=== PATIENT | female | born 1970 | race Caucasian/White ===

== ENCOUNTER 2016-06-12 02:39 | Emergency (ER) | payer MEDICAID ==
[~2016-06-12] VITALS: Ht 147.3 cm; Wt 47.6 kg
[~2016-06-12 02:39] MED LIST: AZITHROMYCIN250 MG ORAL; BREO ELLIPTA 11 EACH IH; CLARINEX5 MG ORAL; DIFLUCAN100 MG ORAL; IBUPROFEN600 MG PO; NITROFURANTOIN100 M2 ORAL; NKM; PHENAZOPYRIDIN200 MG ORAL; PROMETHAZINE-C118 M1 ORAL; PROVENTIL HFA6.7 G1 IH; VICODIN 5-5001 EACH PO
[2016-06-12 03:10] VITALS: BP 127/71
[2016-06-12] MEDS ORDERED: Lidocaine 2% Visc 15ml soln ONE (03:23)
[2016-06-12] MEDS ORDERED: Lidocaine 2% Visc 15ml soln ORAL ONE (03:30)
[2016-06-12] MEDS ORDERED: LORazepam 1mg tab ORAL ONE (04:15)
[2016-06-12] MEDS ORDERED: CORTISPORIN EAR10 ML LEFT EAR (05:02)
--- NOTE | 2016-06-12 05:03 | Emergency Room Report ---
History of Present Illness General Chief Complaint: Foreign Body Source: Patient Present Illness HPI Is a 45-year-old female who presents with foreign body left ear. She woke up with an insect crawled into her ear. She been try to flush it out without success. Denies any fever or chills. Pain is 10 out of 10. No nausea no vomiting. No bleeding. No loss of hearing. Allergies: Coded Allergies: No Known Allergies (Unverified , 01/17/13) Patient History Past Medical History: see triage record, old chart reviewed Past Surgical History: none Pertinent Family History: none Social History: Denies: smoking Last Menstrual Period: 05/21/2016 Now: No Immunizations: other Reviewed Nursing Documentation: PMH: Agreed, PSxH: Agreed Nursing Documentation-PMH Past Medical History: No History, Except For Hx Asthma: Yes Review of Systems Eye: Denies: blurred vision, eye pain ENT: Denies: ear pain, nose congestion, throat swelling Respiratory: Denies: cough, shortness of breath Cardiovascular: Denies: chest pain, palpitations Gastrointestinal: Denies: abdominal pain, diarrhea, nausea, vomiting Musculoskeletal: Denies: back pain, joint pain Skin: Denies: rash Neurological: Denies: headache, numbness Endocrine: Denies: increased thirst, increased urine Hematologic/Lymphatic: Denies: easy bruising All Other Systems: negative except mentioned in HPI Physical Exam Vital Signs Date Time Temp Pulse Resp B/P Pulse Ox O2 Delivery O2 Flow Rate FiO2 06/12/16 02:57 98.2 87 16 128/72 100 Room Air vitals normal Sp02 EP Interpretation: reviewed, normal General Appearance: well appearing, no apparent distress, alert Head: normocephalic, atraumatic Eyes: bilateral eye EOMI, bilateral eye PERRL ENT: hearing grossly normal, normal pharynx, other - Left ear: there is a alcantara in her canal. no trauma. Neck: full range of motion, supple, no meningismus Respiratory: chest non-tender, lungs clear, normal breath sounds Cardiovascular #1: regular rate, rhythm, no murmur Gastrointestinal: normal bowel sounds, non tender, no mass, no organomegaly, no bruit, non-distended Musculoskeletal: back normal, gait/station normal, normal range of motion Psychiatric: mood/affect normal Skin: warm/dry Procedures Additional Procedure Procedure Narrative Procedure: Foreign body removal. Indication: Foreign body in ear canal. Description: I tried irrigating the canal multiple times. This was unsuccessful. Using an alligator forcep, was able to pull out the thorax of the alcantara. The headache, wings, and legs are still in there. Will discharge home with ENT followup. There is some irritation of the canal but no perforation. Patient tolerated procedure without a Problem. Medical Decision Making Diagnostic Impression: Primary Impression: Foreign body in left ear Qualified Codes: T16.2XXA - Foreign body in left ear, initial encounter ER Course Patient with a bug in her ear. Was able removed half of it. The other part was too deep inside. She would need ENT followup. Told to come back in a couple days. Hopefully it will soften to the point that it will break up with irrigation. Last Vital Signs Date Time Temp Pulse Resp B/P Pulse Ox O2 Delivery O2 Flow Rate FiO2 06/12/16 03:10 98.6 79 16 127/71 100 Room Air Status: improved Disposition: HOME, SELF-CARE Condition: Stable Scripts Neomycin/Polymyxin B Sulf/Hc* (CORTISPORIN EAR SOLUTION*) 10 Ml Solution 4 DROP LEFT EAR QID, #10 ML 0 Refills Prov: ELOINA HANNAH M.D. 06/12/16 Referrals: NOT CHOSEN IPA/,REFERRING (PCP) Patient Instructions: FOREIGN BODY, Ear Canal (Removed) Additional Instructions: Followup your DrBeckie in one to 2 days for referral to see ENT Dr. Return in 2-3 days for recheck. Return if worse. ELOINA HANNAH M.D. Jun 12, 2016 05:03
[2016-06-12 05:07] VITALS: BP 118/69
== END 2016-06-12 05:07 | disposition home or self-care (01) ==
LOC: EMR 02:59
DX: T16.2XXA Foreign body in left ear, initial encounter (principal); X58.XXXA Exposure to other specified factors, initial encounter; Y92.9 Unspecified place or not applicable; J45.909 Unspecified asthma, uncomplicated
CPT/HCPCS: 69200; 99284; Z7502

== ENCOUNTER 2017-12-12 18:33 | Emergency (ER) | payer MEDICAID ==
[~2017-12-12] VITALS: Ht 147.3 cm; Wt 53.1 kg
[~2017-12-12 18:33] MED LIST changes: +CORTISPORIN EAR10 ML LEFT EAR
[2017-12-12 18:47] VITALS: BP 130/82
--- NOTE | 2017-12-12 18:54 | Emergency Room Report ---
History of Present Illness General Chief Complaint: Animal Bite Source: Patient (Willow Major DO) Present Illness HPI 47-year-old female presents to the emergency department complaining of itchy lesions to the bilateral lower extremities 3 days. denies erythema Pt. denies fevers, chills or swollen tender lymph nodes. Denies lesions/rashes elsewhere on the body. Denies new medications or body washes or creams. Denies swelling of the lips, tongue , throat or airway. Denies wheezing, or shortness of breath. Denies recent travel, recent illness or ill contacts. denies blisters , oral lesions, or sloughing of the skin. pt. is requesting refill of her albuterol inhaler as she is out, denies asthma exacerbation at this time. (Francheska Cortes) Allergies: Coded Allergies: No Known Allergies (Unverified , 01/17/13) Patient History Past Medical History: see triage record, asthma Social History: Denies: smoking, alcohol use, drug use Last Menstrual Period: 12/12/17 Now: No Reviewed Nursing Documentation: PMH: Agreed; PSxH: Agreed (PedritoWillow Beckie ) Past Medical History: see triage record Past Surgical History: none Pertinent Family History: none Now: No Reviewed Nursing Documentation: PMH: Agreed; PSxH: Agreed (Francheska Cortes) Nursing Documentation-[facility] Past Medical History: No History, Except For Hx Asthma: Yes (Willow MajorBeckie ) Review of Systems All Other Systems: negative except mentioned in HPI ([facility] All Other Systems: negative except mentioned in HPI (Francheska Cortes) Physical Exam Vital Signs Date Time Temp Pulse Resp B/P (MAP) Pulse Ox O2 Delivery O2 Flow Rate FiO2 12/12/17 18:41 98.1 78 18 130/82 97 Room Air 98.1 ([facility]) Sp02 EP Interpretation: reviewed, normal General Appearance: no apparent distress, alert, GCS 15, non-toxic Head: normocephalic, atraumatic Eyes: bilateral eye normal inspection, bilateral eye PERRL ENT: hearing grossly normal, no angioedema, normal voice, other - no swelling of the lips or tongue. Neck: full range of motion Respiratory: lungs clear, normal breath sounds, no rhonchi, no respiratory distress, no wheezing, speaking full sentences Cardiovascular #1: regular rate, rhythm, no edema, normal capillary refill Musculoskeletal: back normal, gait/station normal, normal range of motion, non- tender Neurologic: alert, oriented x3, responsive, motor strength/tone normal, sensory intact, normal gait, speech normal, grossly normal Psychiatric: judgement/insight normal Skin: normal color, warm/dry, well hydrated, rash - Multiple discrete insect bites to the bilateral lower extremity, no evidence of infection at this time. No blisters, vesicles areas with erythema and increased temperature palpation. Lymphatic: no adenopathy (Francheska Cortes) Medical Decision Making PA Attestation Dr. Major is my supervising Physician whom patient management has been discussed with. (Francheska Cortes) Diagnostic Impression: Primary Impression: Insect bite, multiple Additional Impression: Insect bites Qualified Codes: W57.XXXA - Bitten or stung by nonvenomous insect and other nonvenomous arthropods, initial encounter ER Course 47-year-old female presents to the emergency department complaining of itchy lesions to the bilateral lower extremities 3 days. denies erythema Pt. denies fevers, chills or swollen tender lymph nodes. Denies lesions/rashes elsewhere on the body. Denies new medications or body washes or creams. Denies swelling of the lips, tongue , throat or airway. Denies wheezing, or shortness of breath. Denies recent travel, recent illness or ill contacts. denies blisters , oral lesions, or sloughing of the skin. pt. is requesting refill of her albuterol inhaler as she is out, denies asthma exacerbation at this time. Ddx considered but are not limited to cellulitis, scabies, insect bites, tic bites, spider bites, contact dermatitis, Drug reaction, allergic reaction, fungal infection, lice. Vital signs: are WNL, pt. is afebrile H&PE are most consistent with multiple insect bites-not infected. Multiple discrete insect bites to the bilateral lower extremity, no evidence of infection at this time. No blisters, vesicles areas with erythema and increased temperature palpation. ORDERS: none required at this time, the diagnosis is clinical ED INTERVENTIONS: None required at this time. d/w pt. conservative treatment, and to follow up with a primary care provider. pt given a list of primary care clinics for follow up. d/w pt. to return to the ED with worsening or new symptoms. DISCHARGE: At this time pt. is stable for d/c to home. Will provide printed patient care instructions, and any necessary prescriptions. Care plan and follow up instructions have been discussed with the patient prior to discharge. (Francheska Cortes) Last Vital Signs Date Time Temp Pulse Resp B/P (MAP) Pulse Ox O2 Delivery O2 Flow Rate FiO2 12/12/17 18:41 98.1 78 18 130/82 97 Room Air 98.1 (Willow Major DO) Disposition: HOME, SELF-CARE Condition: Stable Scripts Albuterol Sulfate* (ALBUTEROL SULFATE MDI*) 8.5 Gm Hfa.aer.ad 2 PUFF INH Q6H, #1 INH 0 Refills Prov: Francheska Cortes 12/12/17 Mupirocin* (MUPIROCIN*) 22 Gm Oint...g. 1 APPLIC TOPIC THREE TIMES A DAY, #22 GM Prov: Francheska Cortes 12/12/17 Hydrocortisone (Hydrocortisone Cream 2.5%) Y Cream.appl 1 APPLIC TP BID, #28.3 GM Prov: Francheska Cortes 12/12/17 Hydroxyzine HCl (Hydroxyzine HCl) 25 Mg Tablet 25 MG ORAL FOUR TIMES A DAY, #20 TAB Prov: Francheska Cortes 12/12/17 Patient Instructions: Bedbugs, Idwi-[id number], Insect Bite, Aljq-[id number]-[id number] Additional Instructions: Take medications as directed. Follow up with a Primary Care Provider in 3-5 days for DERMATOLOGY REFERRAL , even if your symptoms have resolved. --Please review list of primary care clinics, if you do not already have a primary care provider Return sooner to ED if new symptoms occur, or current symptoms become worse. Do not drink alcohol, drive, or operate heavy machinery while taking hydroxyzine as this may cause drowsiness. - Please note that this Emergency Department Report was dictated using [employer]age cutter technology software, occasionally this can lead to erroneous entry secondary to interpretation by the dictation equipment. Willow Major DO Dec 12, 2017 18:54 Francheska Cortes Dec 12, 2017 19:05
[2017-12-12] MEDS ORDERED: MUPIROCIN22 GM TOPIC (19:07)
[2017-12-12] MEDS ORDERED: HYDROCORTISONE30 G2 TP (19:07)
[2017-12-12] MEDS ORDERED: ATARAX25 MG ORAL (19:07)
[2017-12-12] MEDS ORDERED: ALBUTEROL SULF8.5 GM INH (19:15)
[2017-12-12 19:17] VITALS: BP 0/0
== END 2017-12-12 19:17 | disposition home or self-care (01) ==
LOC: EMR 18:50
DX: S80.862A Insect bite (nonvenomous), left lower leg, initial encounter (principal); S80.861A Insect bite (nonvenomous), right lower leg, initial encounter; W57.XXXA Bitten or stung by nonvenomous insect and other nonvenomous arthropods, initial encounter; Y92.9 Unspecified place or not applicable; R21 Rash and other nonspecific skin eruption; J45.909 Unspecified asthma, uncomplicated
CPT/HCPCS: 99283

== ENCOUNTER 2018-08-09 17:22 | Emergency (ER) | payer MEDICAID ==
[~2018-08-09] VITALS: Ht 147.3 cm; Wt 52.2 kg
[~2018-08-09 17:22] MED LIST changes: +ALBUTEROL SULF8.5 GM INH; +ATARAX25 MG ORAL; +HYDROCORTISONE30 G2 TP; +MUPIROCIN22 GM TOPIC
--- NOTE | 2018-08-09 17:50 | NUR ---
ED Nurse Note: patient walked into ED c/o left ear pain. patient reports she had sore throat for 1 week, left ear pain started 3 days ago.
[2018-08-09 17:52] VITALS: BP 125/75
--- NOTE | 2018-08-09 18:25 | Emergency Room Report ---
History of Present Illness General Chief Complaint: Earache Source: Patient Present Illness HPI 47-year-old female with history of asthma currently controlled with albuterol inhaler inhaler here complaining of pain in left ear, left side of the throat and left-sided cervical lymph node edema times one week. Denies fever chills, rhinorrhea, congestion and cough. Patient has not been using a medication for pain. Has been using her inhaler and requests a refill on her inhaler however denies any SOB and chest pain. Denies any water exposure she reports that the pain started in her throat and is now radiating into the left side of face and ear and left sided neck Allergies: Coded Allergies: No Known Allergies (Unverified , 01/17/13) Patient History Past Medical History: see triage record Past Surgical History: none Pertinent Family History: none Last Menstrual Period: 07/2018 Now: No Reviewed Nursing Documentation: PMH: Agreed; PSxH: Agreed Nursing Documentation-PMH Past Medical History: No History, Except For Hx Asthma: Yes Review of Systems All Other Systems: negative except mentioned in HPI Physical Exam Vital Signs Date Time Temp Pulse Resp B/P (MAP) Pulse Ox O2 Delivery O2 Flow Rate FiO2 08/09/18 17:52 98.4 87 18 125/75 97 Room Air Sp02 EP Interpretation: reviewed, normal General Appearance: normal inspection, well appearing, no apparent distress, alert Head: normocephalic, atraumatic Eyes: bilateral eye normal inspection, bilateral eye PERRL ENT: hearing grossly normal, no angioedema, tonsillar swelling, pharyngeal erythema, tonsillar exudate, other - left ear infx Neck: supple, other - left ant cervical lymphadenopathy Respiratory: normal inspection, chest non-tender, lungs clear, no wheezing Cardiovascular #1: normal inspection, regular rate, rhythm, no gallop, no murmur Gastrointestinal: normal inspection, non tender, no mass, no peritonitis Genitourinary: no CVA tenderness Musculoskeletal: normal inspection, back normal Neurologic: normal inspection, alert Psychiatric: normal inspection, judgement/insight normal Skin: normal inspection, normal color, no rash, well hydrated Lymphatic: adenopathy - left ant cervical Medical Decision Making PA Attestation all diagnosis and treatment plans were reviewed and discussed with my supervising physician Dr. Scott Diagnostic Impression: Primary Impression: Otitis media Additional Impressions: Strep pharyngitis Asthma ER Course 47-year-old female with history of asthma currently controlled with albuterol inhaler inhaler here complaining of pain in left ear, left side of the throat and left-sided cervical lymph node edema times one week. Denies fever chills, rhinorrhea, congestion and cough. Patient has not been using a medication for pain. Has been using her inhaler and requests a refill on her inhaler however denies any SOB and chest pain. Denies any water exposure she reports that the pain started in her throat and is now radiating into the left side of face and ear and left sided neck Ddx considered but are not limited to otitis media, strep pharyngitis, mastoiditis asthma Vital signs: are WNL, pt. is afebrile H&PE are most consistent with asthma, otitis media, strep pharyngitis ORDERS: amoxicillin, ibuprofen, ventolin ED INTERVENTIONS: None required at this time. DISCHARGE: At this time pt. is stable for d/c to home. Will provide printed patient care instructions, and any necessary prescriptions. Care plan and follow up instructions have been discussed with the patient prior to discharge. follow up with ENT Last Vital Signs Date Time Temp Pulse Resp B/P (MAP) Pulse Ox O2 Delivery O2 Flow Rate FiO2 08/09/18 17:52 98.4 87 18 125/75 97 Room Air Disposition: HOME, SELF-CARE Condition: Stable Scripts Ibuprofen* (MOTRIN*) 600 Mg Tablet 600 MG ORAL Q8H PRN for For Pain, #30 TAB 0 Refills Prov: Laura Mayorga 08/09/18 Albuterol Sulfate (VENTOLIN HFA) 18 Gm Hfa.aer.ad 2 PUFFS INH EVERY 6 HOURS, #18 GM 0 Refills Prov: Laura Mayorga 08/09/18 Amoxicillin* (AMOXIL*) 500 Mg Capsule 500 MG ORAL EVERY 8 HOURS for 10 Days, #30 CAP Prov: Laura Mayorga 08/09/18 Patient Instructions: Asthma, Adult, [id number]-[id number], Otitis Media, Adult, Easy-to -Read, Strep Throat Additional Instructions: see ENT Laura Mayorga Aug 09, 2018 18:25
[2018-08-09] MEDS ORDERED: IBUPROFEN600 MG ORAL (18:27)
[2018-08-09] MEDS ORDERED: VENTOLIN HFA18 GM INH (18:27)
[2018-08-09] MEDS ORDERED: AMOXICILLIN500 MG ORAL (18:27)
[2018-08-09 18:39] VITALS: BP 125/75
--- NOTE | 2018-08-09 18:39 | NUR ---
ER DISCHARGE NOTE: Patient is cleared to be discharged per ERMD, pt is aox4, on room air, with stable vital signs. pt was given dc and prescription instructions, pt was able to verbalize understanding, pt id band removed without complications. pt is able to ambulate with steady gait. pt took all belongings.
== END 2018-08-09 18:38 | disposition home or self-care (01) ==
LOC: EMR 18:23
DX: H66.92 Otitis media, unspecified, left ear (principal); J02.0 Streptococcal pharyngitis; B95.5 Unspecified streptococcus as the cause of diseases classified elsewhere; J45.909 Unspecified asthma, uncomplicated
CPT/HCPCS: 99282

== ENCOUNTER 2018-12-28 21:58 | Emergency (ER) | payer MEDICAID ==
[~2018-12-28] VITALS: Ht 147.3 cm; Wt 53.5 kg
[~2018-12-28 21:58] MED LIST changes: +AMOXICILLIN500 MG ORAL; +IBUPROFEN600 MG ORAL; +VENTOLIN HFA18 GM INH
--- NOTE | 2018-12-28 22:33 | NUR ---
ED Nurse Note: pt walked in c/o lower abd pain and back pain since , denies n/v/d, denies problem with urination, pt also reports rash on julianne legs and left arm. will cont monitor.
[2018-12-28 22:34] VITALS: BP 137/89
[2018-12-28 23:11] LABS: BASOPHILS % (AUTO) 0.9 % (0.0-2.0); EOSINOPHILS % (AUTO) 2.7 % (0.0-3.0); HEMATOCRIT 35.6 % (37.0-47.0); HEMOGLOBIN 12.1 G/DL (12.0-16.0); LYMPHOCYTES % (AUTO) 33.4 % (20.0-45.0); MEAN CORPUSCULAR VOLUME 90 FL (80-99); MONOCYTES % (AUTO) 7.9 % (1.0-10.0); NEUTROPHILS % (AUTO) 55.1 % (45.0-75.0); PLATELET COUNT 288 K/UL (150-450); RED BLOOD COUNT 3.93 M/UL (4.20-5.40); RED CELL DISTRIBUTION WIDTH 11.7 % (11.6-14.8); WHITE BLOOD COUNT 7.1 K/UL (4.8-10.8)
[2018-12-28 23:16] LABS: APPEARANCE,URINE CLEAR; BILIRUBIN, URINE NEGATIVE (NEGATIVE); COLOR,URINE PALE YELLOW; GLUCOSE, URINE (UA) NEGATIVE (NEGATIVE); KETONES,URINE NEGATIVE (NEGATIVE); LEUKOCYTE ESTERASE ,URINE NEGATIVE (NEGATIVE); NITRITE,URINE NEGATIVE (NEGATIVE); PH,URINE 8 (4.5-8.0); PROTEIN,URINE NEGATIVE (NEGATIVE); UROBILINOGEN,URINE NORMAL MG/DL (0.0-1.0)
[2018-12-28 23:18] LABS: ANION GAP 6 mmol/L (5-15); BLOOD UREA NITROGEN 7 mg/dL (7-18); CALCIUM 10.3 MG/DL (8.5-10.1); CARBON DIOXIDE 32 MMOL/L (21-32); CHLORIDE 101 MMOL/L (98-107); CREATININE 0.5 MG/DL (0.55-1.30); POTASSIUM 3.8 MMOL/L (3.5-5.1); SODIUM 138 MMOL/L (136-145)
[2018-12-28 23:22] LABS: ALANINE AMINOTRANSFERASE 13 U/L (12-78); ALBUMIN 3.9 G/DL (3.4-5.0); ALBUMIN/GLOBULIN RATIO 0.9 (1.0-2.7); ALKALINE PHOSPHATASE 52 U/L (46-116); ASPARTATE AMINO TRANSFERASE 15 U/L (15-37); BILIRUBIN,TOTAL 0.2 MG/DL (0.2-1.0)
[2018-12-29] MEDS ORDERED: MEDROL DOSEPAK4 MG ORAL (00:11)
[2018-12-29 00:25] VITALS: BP 128/76
--- NOTE | 2018-12-29 00:25 | NUR ---
ED Nurse Note: PT CLEARED TO BE D/C PER ERMD, PT DISCHARGE AND AFTERCARE INSTRUCTION PROVIDED W/ PRESCRIPTION, PT EDUCATION DONE VIA DISCUSSION AND HANDOUT, PT ADVISED TO FOLLOW UP WITH PCP OR RETURN TO ED IF CHANGES IN CONDITION, VSS, AMBULATORY W/ STEADY GAIT, LEFT W/ ALL BELONGINGS. PT ACCOMPANIED BY DAUGHTER.
--- NOTE | 2018-12-29 02:46 | Emergency Room Report ---
History of Present Illness General Chief Complaint: Pain Source: Patient Present Illness HPI Patient presents with mainly 2 different complaints First complaint includes several different skin lesions that she has been noticing lower extremity and the upper extremities the ones in the lower legs appears to have resolved However there is now one in the left medial elbow which is mildly erythematous Concerned about possible insect bite Patient also has been noticing increased cramping in the lower abdomen bilaterally she reports an abnormal menstrual cycle recently Denies any chest pain or shortness of breath denies any fevers denies any vomiting or diarrhea Allergies: Coded Allergies: No Known Allergies (Unverified , 01/17/13) Patient History Past Medical History: see triage record Last Menstrual Period: None for two months then 12/25/18 Now: No Reviewed Nursing Documentation: PMH: Agreed; PSxH: Agreed Nursing Documentation-PMH Hx Asthma: Yes Review of Systems All Other Systems: negative except mentioned in HPI Physical Exam Vital Signs Date Time Temp Pulse Resp B/P (MAP) Pulse Ox O2 Delivery O2 Flow Rate FiO2 12/28/18 22:11 97.9 79 16 137/89 (105) 97 Room Air Sp02 EP Interpretation: reviewed, normal General Appearance: well appearing, no apparent distress Head: normocephalic, atraumatic Eyes: bilateral eye PERRL, bilateral eye EOMI ENT: hearing grossly normal, normal pharynx, TMs + canals normal, uvula midline Neck: full range of motion, supple, no meningismus, no bony tend Respiratory: lungs clear, normal breath sounds, no rhonchi, no respiratory distress, no retraction, no accessory muscle use Cardiovascular #1: normal peripheral pulses, regular rate, rhythm, no edema, no gallop, no JVD, no murmur Gastrointestinal: normal bowel sounds, non tender, soft, no mass, no organomegaly, non-distended, no guarding, no hernia, no pulsatile mass, no rebound Genitourinary: no CVA tenderness Musculoskeletal: normal inspection Neurologic: oriented x3, responsive, tar and ammonia pump operator III-XII nml as tested, motor strength/ tone normal, sensory intact Psychiatric: mood/affect normal Skin: other - Erythematous lesion is noted at the medial aspect of the left elbow, there is a central spot consistent with likely insect bite no obvious fluctuance however Lymphatic: normal inspection, no adenopathy Medical Decision Making Diagnostic Impression: Primary Impression: insect bite Additional Impression: Metrorrhagia ER Course Patient's abdominal exam is soft and benign given the lower bilateral cramping and suprapubic discomfort consideration for director of district office differential such as uterine fibroids is also made Patient's blood work is at baseline levels I feel she is a candidate for appropriate outpatient follow-up She was also placed on a low steroid dose for her left elbow as it appears to be likely insect bite no obvious cellulitis and appears to be a local reaction Labs Test 12/28/18 22:26 White Blood Count 7.1 K/UL (4.8-10.8) Red Blood Count 3.93 M/UL (4.20-5.40) Hemoglobin 12.1 G/DL (12.0-16.0) Hematocrit 35.6 % (37.0-47.0) Mean Corpuscular Volume 90 FL (80-99) Mean Corpuscular Hemoglobin 30.7 PG (27.0-31.0) Mean Corpuscular Hemoglobin Concent 34.0 G/DL (32.0-36.0) Red Cell Distribution Width 11.7 % (11.6-14.8) Platelet Count 288 K/UL (150-450) Mean Platelet Volume 6.7 FL (6.5-10.1) Neutrophils (%) (Auto) 55.1 % (45.0-75.0) Lymphocytes (%) (Auto) 33.4 % (20.0-45.0) Monocytes (%) (Auto) 7.9 % (1.0-10.0) Eosinophils (%) (Auto) 2.7 % (0.0-3.0) Basophils (%) (Auto) 0.9 % (0.0-2.0) Urine Color Pale yellow Urine Appearance Clear Urine pH 8 (4.5-8.0) Urine Specific [place] 1.015 (1.005-1.035) Urine Protein Negative (NEGATIVE) Urine Glucose (UA) Negative (NEGATIVE) Urine Ketones Negative (NEGATIVE) Urine Blood 4+ (NEGATIVE) Urine Nitrite Negative (NEGATIVE) Urine Bilirubin Negative (NEGATIVE) Urine Urobilinogen Normal MG/DL (0.0-1.0) Urine Leukocyte Esterase Negative (NEGATIVE) Urine RBC 15-20 /HPF (0 - 2) Urine WBC 0-2 /HPF (0 - 2) Urine Squamous Epithelial Cells Many /LPF (NONE/OCC) Urine Bacteria Few /HPF (NONE) Urine HCG, Qualitative Negative (NEGATIVE) Sodium Level 138 MMOL/L (136-145) Potassium Level 3.8 MMOL/L (3.5-5.1) Chloride Level 101 MMOL/L (98-107) Carbon Dioxide Level 32 MMOL/L (21-32) Anion Gap 6 mmol/L (5-15) Blood Urea Nitrogen 7 mg/dL (7-18) Creatinine 0.5 MG/DL (0.55-1.30) Estimat Glomerular Filtration Rate > 60 mL/min (>60) Glucose Level 101 MG/DL (74-106) Calcium Level 10.3 MG/DL (8.5-10.1) Total Bilirubin 0.2 MG/DL (0.2-1.0) Aspartate Amino Transf (AST/SGOT) 15 U/L (15-37) Alanine Aminotransferase (ALT/SGPT) 13 U/L (12-78) Alkaline Phosphatase 52 U/L (46-116) Total Protein 8.1 G/DL (6.4-8.2) Albumin 3.9 G/DL (3.4-5.0) Globulin 4.2 g/dL Albumin/Globulin Ratio 0.9 (1.0-2.7) Last Vital Signs Date Time Temp Pulse Resp B/P (MAP) Pulse Ox O2 Delivery O2 Flow Rate FiO2 12/29/18 00:25 98.2 70 16 128/76 97 Room Air Status: improved Disposition: HOME, SELF-CARE Condition: Improved Scripts Methylprednisolone (Methylprednisolone*) 4MG Dspk 4 MG ORAL DIRECTED for 6 Days, #21 EA 0 Refills Day 1: Two tablets before breakfast, one after lunch, one after dinner, and two at bedtime. If started late in the day, take all six tablets at once or divide into two or three doses, unless otherwise directed by prescriber. Day 2: One tablet before breakfast, one after lunch, one after dinner, and two at bedtime Day 3: One tablet before breakfast, one after lunch, one after dinner, and one at bedtime Day 4: One tablet before breakfast, one after lunch, and one at bedtime Day 5: One tablet before breakfast and one at bedtime Day 6: One tablet before breakfast Prov: Sindy Scott DO 12/29/18 Referrals: NOT CHOSEN IPA/MD,REFERRING (PCP) Patient Instructions: Metrorrhagia, [id number]-[id number], Insect Bite, [id number] Additional Instructions: Patient is provided with the discharge instructions notified to follow up with primary doctor in the next 2-3 days otherwise return to the er with any worsening symptoms. Please note that this report is being documented using [employer]AG[employer] technology. This can lead to erroneous entry secondary to incorrect interpretation by the dictating instrument. Sindy Scott DO Dec 29, 2018 02:46
== END 2018-12-29 00:25 | disposition home or self-care (01) ==
LOC: EMR 22:22
DX: S50.362A Insect bite (nonvenomous) of left elbow, initial encounter (principal); W57.XXXA Bitten or stung by nonvenomous insect and other nonvenomous arthropods, initial encounter; Y92.9 Unspecified place or not applicable; N92.1 Excessive and frequent menstruation with irregular cycle
CPT/HCPCS: 36415; 80053; 81003; 81025; 85025; 99283